=== PATIENT | female | born 2000 | race African-American/Black ===

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

== ENCOUNTER 2020-01-02 23:33 | Emergency (ER) | payer OTHER ==
[~2020-01-02] VITALS: Ht 167.6 cm; Wt 58.0 kg
[~2020-01-02 23:33] MED LIST changes: +TOBR5DRO6 OS
[2020-01-03 00:02] VITALS: BP 121/77
[2020-01-03] MEDS ORDERED: CEPH-264 PO (00:43)
--- NOTE | 2020-01-03 00:43 | PHYS DOC ---
Past Medical History Past Medical History: No Pertinent History Past Surgical History: No Surgical History Smoking Status: Never Smoker Alcohol Use: None Drug Use: None General Adult EDM: Chief Complaint: TOE PROBLEM HPI: HPI: The history was obtained from the patient. Patient is a 19-year-old female with no reported PMH who presents with a chief complaint of left great toe injury. Patient states 3 years ago she experienced a left great toe injury. States since then she has had an abnormal toenail. She states that as grown upward. States a year ago her family physician gave her antifungal medication to help with this. Had her toe looked at a year. She states today she wore closed toe shoes that rubbed against her toenail. She states it caused avulsion and mild bleeding. Does have some pain to the area. States the toenail is not loose overlying her left great toe. States she is able to ambulate. Has not tried medicine to help. No other complaints. Review of Systems: Review of Systems: Constitutional: Denies fever or chills. [] Eyes: Denies change in visual acuity. [] HENT: Denies nasal congestion or sore throat. [] Respiratory: Denies cough or shortness of breath. [] Cardiovascular: Denies chest pain or edema. [] GI: Denies abdominal pain, nausea, vomiting, bloody stools or diarrhea. [] : Denies dysuria. [] Musculoskeletal: Positive for toe pain Integument: Denies rash. [] Neurologic: Denies headache, focal weakness or sensory changes. [] Endocrine: Denies polyuria or polydipsia. [] Lymphatic: Denies swollen glands. [] Psychiatric: Denies depression or anxiety. [] Heart Score: Risk Factors: Risk Factors: DM, Current or recent (<one month) smoker, HTN, HLP, family history of CAD, obesity. Risk Scores: Score 0 - 3: 2.5% MACE over next 6 weeks - Discharge Home Score 4 - 6: 20.3% MACE over next 6 weeks - Admit for Clinical Observation Score 7 - 10: 72.7% MACE over next 6 weeks - Early Invasive Strategies Allergies: Allergies: Allergies Coded Allergies Type Severity Reaction Last Updated Verified No Known Drug Allergies 02/19/17 No Physical Exam: PE: Constitutional: Well developed, well nourished, no acute distress, non-toxic appearance. [] HENT: Normocephalic, atraumatic, bilateral external ears normal, oropharynx moist, no oral exudates, nose normal. [] Eyes: PERRLA, EOMI, conjunctiva normal, no discharge. [] Neck: Normal range of motion, no tenderness, supple, no stridor. [] Cardiovascular:Heart rate regular rhythm, no murmur [] Lungs & Thorax: Bilateral breath sounds clear to auscultation [] Abdomen: Bowel sounds normal, soft, no tenderness, no masses, no pulsatile masses. [] Skin: Warm, dry, no erythema, no rash. [] Back: No tenderness, no CVA tenderness. [] Extremities: Left great toenail slightly avulsed. Mild bloody oozing noted. Slight tenderness to palpation. Toenail still overlying the germinal matrix. No signs of germinal matrix laceration. Neurologic: Alert and oriented X 3, normal motor function, normal sensory function, no focal deficits noted. [] Psychologic: Affect normal, judgement normal, mood normal. [] Current Patient Data: Vital Signs: Vital Signs Date Time Temp Pulse Resp B/P (MAP) Pulse Ox O2 Delivery O2 Flow Rate FiO2 01/03/20 00:02 97.6 103 14 121/77 (92) 95 Room Air 97.6 EKG: EKG: [] Radiology/Procedures: Radiology/Procedures: [] Course & Med Decision Making: Course & Med Decision Making Pertinent Labs and Imaging studies reviewed. (See chart for details) [] Patient is a well-appearing 19 old female presents with chief complaint of left great toe injury. Vital signs normal. Physical exam notable for toenail grown upward approximate 1 cm from the left great toe. Slight bloody oozing noted underneath the toenail. Still overlying germinal matrix. Given she has not had any trauma or injury today do not feel plain film imaging is indicated. I did discuss my concern with filing down the toenail or removing the toenail completely at this time. I am concerned that I could cause further damage traumatically or increased risk of infection. I do feel it would be best cared for by party host. She was given an open toed postop shoe. Short course of Keflex to be administered. She was given referral to party host for foot care. Return precautions discussed and understood. Stable for discharge home. Dragon Disclaimer: Kerry Disclaimer: This electronic medical record was generated, in whole or in part, using a voice recognition dictation system. Departure Departure Impression: Primary Impression: Nail avulsion, toe Qualified Codes: S91.209A - Unspecified open wound of unspecified toe(s) with damage to nail, initial encounter Referrals: NO PCP (PCP) NATY FRENCH DPM Patient Instructions: Nail Avulsion Injury Additional Instructions: Please follow-up with your primary care physician in the next 2 to 3 days. Please follow-up with the party host provided in the next 1 to 2 days. Scripts Cephalexin (KEFLEX) 500 Mg Capsule 1 CAP PO QID for 5 Days, #20 CAP 0 Refills Prov: DANICA MAYEN DO 01/03/20 Justicifation of Admission Dx: Justifications for Admission: Justification of Admission Dx: N/A DANICA MAYEN DO Jan 03, 2020 00:43
[2020-01-03] MEDS ORDERED: CEPHALEXIN 250 MG CAPSULE. PO ONE (00:45)
== END 2020-01-03 01:10 | disposition home or self-care (01) ==
LOC: ER 23:33
DX: S91.202A Unspecified open wound of left great toe with damage to nail, initial encounter (principal); X58.XXXA Exposure to other specified factors, initial encounter; Y93.89 Activity, other specified; Y92.89 Other specified places as the place of occurrence of the external cause; Y99.8 Other external cause status
CPT/HCPCS: 99283

== ENCOUNTER 2020-12-17 22:12 | Emergency (ER) | payer OTHER ==
[~2020-12-17] VITALS: Ht 157.5 cm; Wt 54.5 kg
[~2020-12-17 22:12] MED LIST changes: +CEPH-264 PO
[2020-12-17] MEDS ORDERED: ALBU2.5V8 INH (22:51)
[2020-12-17] MEDS ORDERED: METH4TAB2 PO (22:51)
--- NOTE | 2020-12-17 22:51 | PHYS DOC ---
Past Medical History Past Medical History: No Pertinent History Past Surgical History: No Surgical History Smoking Status: Never Smoker Alcohol Use: None Drug Use: None General Adult EDM: Chief Complaint: MULTIPLE COMPLAINTS HPI: HPI: Patient is a 19 year old Female who presents with 1 day of sore throat, he adache, body aches. She has not taken anything for symptoms. Her mother, sister and father have positive Covid test today. She denies nausea, vomiting, abdominal pain, cough, shortness of air, chest pain, dizziness, syncope. Rates her discomfort at a 5 out of 10. Review of Systems: Review of Systems: Constitutional: + fever or +chills. [] Eyes: Denies change in visual acuity. [] HENT: Denies nasal congestion or +sore throat. [] Respiratory: + cough or denies shortness of breath. [] Cardiovascular: Denies chest pain or edema. [] GI: Denies abdominal pain, nausea, vomiting, bloody stools or diarrhea. [] : Denies dysuria. [] Musculoskeletal: Denies back pain or joint pain. + Generalized fatigue, +body aches [] Integument: Denies rash. [] Neurologic: + headache, denies focal weakness or sensory changes. [] Endocrine: Denies polyuria or polydipsia. [] Lymphatic: Denies swollen glands. [] Psychiatric: Denies depression or anxiety. [] Heart Score: C/O Chest Pain: No Risk Factors: Risk Factors: DM, Current or recent (<one month) smoker, HTN, HLP, family history of CAD, obesity. Risk Scores: Score 0 - 3: 2.5% MACE over next 6 weeks - Discharge Home Score 4 - 6: 20.3% MACE over next 6 weeks - Admit for Clinical Observation Score 7 - 10: 72.7% MACE over next 6 weeks - Early Invasive Strategies Allergies: Allergies: Allergies Coded Allergies Type Severity Reaction Last Updated Verified No Known Drug Allergies 12/17/20 No Physical Exam: PE: Constitutional: Well developed, well nourished, no acute distress, non-toxic appearance. [] HENT: Normocephalic, atraumatic, bilateral external ears normal, oropharynx moist, no oral exudates, nose normal. [] Eyes: PERRLA, EOMI, conjunctiva normal, no discharge. [] Neck: Normal range of motion, no tenderness, supple, no stridor. [] Cardiovascular:Heart rate regular rhythm, no murmur [] Lungs & Thorax: Bilateral breath sounds clear to auscultation [] Abdomen: Bowel sounds normal, soft, no tenderness, no masses, no pulsatile masses. [] Skin: Warm, dry, no erythema, no rash. [] Back: No tenderness, no CVA tenderness. [] Extremities: No tenderness, no cyanosis, no clubbing, ROM intact, no edema. [] Neurologic: Alert and oriented X 3, normal motor function, normal sensory function, no focal deficits noted. [] Psychologic: Affect normal, judgement normal, mood normal. [] Normal physical exam Current Patient Data: Vital Signs: Vital Signs Date Time Temp Pulse Resp B/P (MAP) Pulse Ox O2 Delivery O2 Flow Rate FiO2 12/17/20 22:18 97.5 75 156/88 (92) 100 Room Air 97.5 EKG: EKG: [] Radiology/Procedures: Radiology/Procedures: [] Course & Med Decision Making: Course & Med Decision Making Pertinent Labs and Imaging studies reviewed. (See chart for details) COVID-19 CRITERIA: The patient was evaluated during the global COVID-19 pandemic, and that diagnosis was suspected/considered upon their initial presentation. Their evaluation, treatment and testing was consistent with current guidelines for patients who present with complaints or symptoms that may be related to COVID-19. See HPI. Alert and oriented x4. Ambulatory steady gait. Skin pink warm and dry. Lungs are clear to all station all lobes. Vital signs are normal. Speaks in full clear sentences. Patient is in no distress. Throat is pink without exudates or swelling. Patient's rapid Covid is negative. Her whole family is positive and she has symptoms. Patient will be educated that she needs to quarantine. [] Dragon Disclaimer: Dragon Disclaimer: This electronic medical record was generated, in whole or in part, using a voice recognition dictation system. COVID-19 Patient Risks: Age 65 or older: No Sign of co-morbidity: No Exp to person + for COVID: Yes Exp to PUI: Yes Travel from affected area: No Lower respiratory symptoms: Yes Fever: No Other: Yes (bodyaches, sore throat) Departure Departure Impression: Primary Impression: Person under investigation for COVID-19 Disposition: HOME / SELF CARE / HOMELESS Condition: STABLE Referrals: NO PCP (PCP) Patient Instructions: Fever, Adult, Headache and Allergies, Sore Throat Additional Instructions: Drink plenty of fluids. Quarantine. Return emergency room for severe shortness of breath, or you if you cannot keep down any fluids. Take medication as prescribed and with food. Take Tylenol and ibuprofen to help with pain and or fever. Scripts Albuterol Sulfate (PROAIR HFA INHALER) 8.5 Gm Hfa.aer.ad 1 PUFF INH PRN Q6HRS PRN for SHORTNESS OF BREATH, #1 EACH 0 Refills Prov: SHAI THAKUR APRN 12/17/20 Methylprednisolone (MEDROL) 4 Mg Tab.ds.pk 1 PKG PO UD, #1 PKG Prov: SHAI THAKUR APRN 12/17/20 SHAI THAKUR APRN Dec 17, 2020 22:51
[2020-12-17 23:50] VITALS: BP 124/77
--- NOTE | 2020-12-18 17:51 | NUR ---
IP: Informed pt of negative covid test. Pt verbalized understanding.
== END 2020-12-17 23:59 | disposition home or self-care (01) ==
LOC: ER 22:12
DX: J02.9 Acute pharyngitis, unspecified (principal); Z20.822 Contact with and (suspected) exposure to COVID-19; R51.9 Headache, unspecified; M79.10 Myalgia, unspecified site
CPT/HCPCS: 87070; 87426; 87880; 99283; U0003; U0005